=== PATIENT | female | born 1940 | race Caucasian/White ===

== ENCOUNTER 2018-06-14 10:13 | Inpatient (IN) | payer MEDICARE ==
[~2018-06-14] VITALS: Ht 160 cm; Wt 49.7 kg
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
[2018-06-14] MEDS ORDERED: HYDROcodone/APAP 5/325 TABLET PO ONE (10:30)
--- NOTE | 2018-06-14 10:59 | NUR ---
pt laying on gurney awake & calm, responds verbally to staff, NAD at rest, comfort measures provided, call light within reach
[2018-06-14] MEDS ORDERED: HYDROcodone/APAP 5/325 TABLET ONE (11:01)
--- NOTE | 2018-06-14 12:04 | NUR ---
pt continues laying on gurney with eyes closed, responds verbally to staff, NAD at rest, comfort measures provided, call light within reach
--- NOTE | 2018-06-14 13:38 | NUR ---
DR. PEARSON AT BEDSIDE.
--- NOTE | 2018-06-14 13:41 | NUR ---
Pt to be admitted to med-surg, room 456. Report called to Rachel.
[2018-06-14] MEDS ORDERED: MULT-658 PO (13:47)
[2018-06-14] MEDS ORDERED: FERR324T5 PO (13:47)
[2018-06-14] MEDS ORDERED: OMEP20TA62 PO (13:47)
[2018-06-14] MEDS ORDERED: NAPR-685 PO (13:47)
[2018-06-14] MEDS ORDERED: LORA0.5T PO (13:47)
[2018-06-14] MEDS ORDERED: QUET25TA7 PO (13:47)
[2018-06-14] MEDS ORDERED: FLUO20CA19 PO (13:47)
[2018-06-14] MEDS ORDERED: TRAM50TA2 PO (13:47)
[2018-06-14] MEDS ORDERED: SIMV80TA18 PO (13:47)
--- NOTE | 2018-06-14 14:01 | NUR ---
pt laying on gurney awake & calm, responds verbally to staff, NAD at rest, comfort measures provided, call light within reach
[2018-06-14 14:06] LABS: BASOPHILS # (AUTO) 0.07 x10^3/uL (0-0.1); BASOPHILS % (AUTO) 1 % (0-1); EOSINOPHILS # (AUTO) 0.08 x10^3/uL (0-0.4); EOSINOPHILS % (AUTO) 1 % (1-7); LYMPHOCYTES # (AUTO) 1.62 x10^3/uL (1-3.4); LYMPHOCYTES % (AUTO) 20 % (22-44); MD NO; MEAN CORPUSCULAR HGB CONC 33.4 g/dL (32.4-35.8); MEAN CORPUSCULAR VOLUME 101.8 fL (80-100); MEAN PLATELET VOLUME 9.2 fL (7.4-10.4); MONOCYTES # (AUTO) 0.79 x10^3/uL (0.2-0.8); MONOCYTES % (AUTO) 10 % (2-9); NEUTROPHILS # (AUTO) 5.68 x10^3/uL (1.8-6.8); NEUTROPHILS % (AUTO) 69 % (42-75); PLATELET COUNT 226 x10^3/uL (130-400); RED BLOOD COUNT 3.88 x10^6/uL (3.82-5.3); RED CELL DISTRIBUTION WIDTH 13.8 % (9.6-15.2)
[2018-06-14] MEDS ORDERED: LORazepam 2 MG/ML, 1ML ONE (14:09)
[2018-06-14 14:12] LABS: ALBUMIN 3.5 g/dL (3.4-5.0); ANION GAP 6 mmol/L (5-15); CHLORIDE 105 mmol/L (98-107); CREATININE 0.61 mg/dL (0.55-1.02); INTERNATIONAL NORMALIZED RATIO 1.02 (0.93-1.1); PROTHROMBIN TIME 10.7 Seconds (9.6-11.5)
--- NOTE | 2018-06-14 14:13 | NUR ---
pt to MRI then floor
[2018-06-14] MEDS ORDERED: LORazepam 2 MG/ML, 1ML IVPush ONE (14:30)
[2018-06-14 15:16] VITALS: BP 129/83
[2018-06-14] MEDS ORDERED: POLYETHYLENE GLYCOL 17 GM PACKET PO PRN (15:30)
[2018-06-14] MEDS ORDERED: morphine SULFATE 10 MG/ML, 1ML IVPush PRN (15:30)
[2018-06-14] MEDS ORDERED: BISACODYL 10 MG SUPP PR PRN (15:30)
[2018-06-14] MEDS ORDERED: ONDANSETRON 2MG/ML, 2ML IVPush PRN (15:30)
[2018-06-14] MEDS ORDERED: ACETAMINOPHEN 325 MG TABLET PO PRN (15:30)
[2018-06-14] MEDS ORDERED: hydrALAzine 20 MG/ML, 1ML IVPush PRN (15:30)
[2018-06-14] MEDS ORDERED: ONDANSETRON ODT 4 MG PO PRN (15:30)
[2018-06-14] MEDS ORDERED: PROMETHAZINE 25 MG/ML, 1ML IM PRN (15:30)
[2018-06-14] MEDS ORDERED: ENOXAPARIN 40 MG/0.4 ML SQ SCH (15:30)
[2018-06-14] MEDS ORDERED: METHOCARBAMOL 500 MG TABLET PO PRN (15:30)
[2018-06-14 16:31] LABS: FREE T4 (FREE THYROXINE) 1.39 ng/dL (0.76-1.46)
[2018-06-14 16:34] LABS: FOLATE LEVEL > 20.0 ng/mL (3.1-17.5)
[2018-06-14 16:39] LABS: HEMOGLOBIN A1C 5.5 % (4.2-6.3)
[2018-06-14] MEDS: SODIUM CHLORIDE 0.9% 1,000 ML IV SCH (17:05)
[2018-06-14 19:08] VITALS: BP 132/83
[2018-06-14] MEDS: NAPROXEN 500 MG TABLET PO SCH (20:36)
[2018-06-14] MEDS: HYDROcodone/APAP 5/325 TABLET PO PRN (20:36)
[2018-06-14] MEDS: QUETIAPINE 25MG TABLET PO SCH (20:36)
[2018-06-14] MEDS: SIMVASTATIN 40 MG TABLET PO SCH (20:36)
[2018-06-14] MEDS: HEPARIN 5,000 UNITS/ML, 1ML SQ SCH (20:37)
[2018-06-15] MEDS: SODIUM CHLORIDE 0.9% 1,000 ML IV SCH (02:29)
[2018-06-15 04:00] VITALS: BP 150/90
[2018-06-15 04:16] LABS: BASOPHILS # (AUTO) 0.02 x10^3/uL (0-0.1); BASOPHILS % (AUTO) 0 % (0-1); EOSINOPHILS # (AUTO) 0.29 x10^3/uL (0-0.4); EOSINOPHILS % (AUTO) 5 % (1-7); LYMPHOCYTES # (AUTO) 1.91 x10^3/uL (1-3.4); LYMPHOCYTES % (AUTO) 31 % (22-44); MD NO; MEAN CORPUSCULAR HGB CONC 33.3 g/dL (32.4-35.8); MONOCYTES # (AUTO) 0.73 x10^3/uL (0.2-0.8); MONOCYTES % (AUTO) 12 % (2-9); NEUTROPHILS # (AUTO) 3.28 x10^3/uL (1.8-6.8); NEUTROPHILS % (AUTO) 53 % (42-75); PLATELET COUNT 200 x10^3/uL (130-400); RED BLOOD COUNT 3.87 x10^6/uL (3.82-5.3)
[2018-06-15 04:22] LABS: ALANINE AMINOTRANSFERASE 28 U/L (12-78); ALBUMIN 3.1 g/dL (3.4-5.0); ANION GAP 4 mmol/L (5-15); CALCIUM 8.4 mg/dL (8.5-10.1); CHLORIDE 107 mmol/L (98-107)
[2018-06-15 04:25] LABS: ALKALINE PHOSPHATASE 79 U/L (45-117); BILIRUBIN,TOTAL 0.7 mg/dL (0.2-1.0); CHOL/HDL RATIO 3.4; CHOLESTEROL, TOTAL 241 mg/dL (140-239); CREATININE 0.62 mg/dL (0.55-1.02); HDL CHOL % 29 % (28-40); HDL CHOLESTEROL (DIRECT) 70 mg/dL (40-60); LDL CHOLESTEROL,CALCULATED 149 mg/dL (54-169); LDL/HDL RATIO 2.1 (0.5-3.0); TOTAL PROTEIN 6.3 g/dL (6.4-8.2); TRIGLYCERIDES 111 mg/dL (50-200); VLDL CHOLESTEROL 22 mg/dL (0-25)
[2018-06-15] MEDS: HEPARIN 5,000 UNITS/ML, 1ML SQ SCH (05:51)
[2018-06-15 07:38] VITALS: BP 161/93
[2018-06-15] MEDS: SENNA/DOCUSATE TABLET PO SCH (08:13)
[2018-06-15] MEDS: FLUOXETINE HCL 20 MG CAPSULE PO SCH (08:13)
[2018-06-15] MEDS: FERROUS SULFATE 325 MG TABLET PO SCH (08:13)
[2018-06-15] MEDS: NAPROXEN 500 MG TABLET PO SCH ×2 (08:13→21:38)
[2018-06-15] MEDS: MULTIVITAMIN 1 TABLET PO SCH (08:13)
[2018-06-15] MEDS: OMEPRAZOLE 20 MG CAPSULE.DR PO SCH (08:13)
[2018-06-15] MEDS: HYDROcodone/APAP 5/325 TABLET PO PRN ×3 (08:16→21:39)
[2018-06-15] MEDS: LORazepam 0.5MG TABLET PO PRN (12:11)
[2018-06-15] MEDS ORDERED: ENOXAPARIN 30 MG/0.3 ML SQ SCH (13:00)
[2018-06-15 13:17] VITALS: BP 126/76
[2018-06-15] MEDS ORDERED: SODIUM CHLORIDE 0.9% 1,000 ML IV SCH (17:45)
[2018-06-15] MEDS: ENOXAPARIN 40 MG/0.4 ML SQ SCH (17:56)
[2018-06-15 19:08] VITALS: BP 129/74
[2018-06-15] MEDS: QUETIAPINE 25MG TABLET PO SCH (21:38)
[2018-06-15] MEDS: SIMVASTATIN 40 MG TABLET PO SCH (21:43)
[2018-06-15] MEDS ORDERED: ERGOCALCIFEROL 50,000 UNIT CAPSULE PO SCH (22:30)
[2018-06-16 00:48] VITALS: BP 127/78
[2018-06-16] MEDS: HYDROcodone/APAP 5/325 TABLET PO PRN ×4 (04:09→18:38)
[2018-06-16] MEDS: SENNA/DOCUSATE TABLET PO SCH (08:23)
[2018-06-16] MEDS: OMEPRAZOLE 20 MG CAPSULE.DR PO SCH (08:23)
[2018-06-16] MEDS: NAPROXEN 500 MG TABLET PO SCH ×2 (08:23→21:27)
[2018-06-16] MEDS: FERROUS SULFATE 325 MG TABLET PO SCH (08:23)
[2018-06-16] MEDS: MULTIVITAMIN 1 TABLET PO SCH (08:23)
[2018-06-16] MEDS: FLUOXETINE HCL 20 MG CAPSULE PO SCH (08:23)
[2018-06-16 09:59] VITALS: BP 113/75
[2018-06-16 15:55] VITALS: BP 124/82
[2018-06-16] MEDS: LORazepam 0.5MG TABLET PO PRN (16:07)
[2018-06-16] MEDS: ENOXAPARIN 40 MG/0.4 ML SQ SCH (18:38)
[2018-06-16 19:46] VITALS: BP 127/76
[2018-06-16] MEDS: QUETIAPINE 25MG TABLET PO SCH (21:27)
[2018-06-16] MEDS: SIMVASTATIN 40 MG TABLET PO SCH (21:27)
[2018-06-17 01:09] VITALS: BP 127/55
[2018-06-17 06:35] VITALS: BP 137/91
[2018-06-17] MEDS: HYDROcodone/APAP 5/325 TABLET PO PRN ×3 (06:50→19:56)
[2018-06-17] MEDS: SENNA/DOCUSATE TABLET PO SCH (08:29)
[2018-06-17] MEDS: FLUOXETINE HCL 20 MG CAPSULE PO SCH (08:29)
[2018-06-17] MEDS: FERROUS SULFATE 325 MG TABLET PO SCH (08:30)
[2018-06-17] MEDS: NAPROXEN 500 MG TABLET PO SCH ×2 (08:30→19:55)
[2018-06-17] MEDS: OMEPRAZOLE 20 MG CAPSULE.DR PO SCH (08:31)
[2018-06-17] MEDS: MULTIVITAMIN 1 TABLET PO SCH (08:31)
[2018-06-17 13:26] VITALS: BP 106/71
[2018-06-17] MEDS: LORazepam 0.5MG TABLET PO PRN ×2 (13:48→21:26)
[2018-06-17] MEDS: ENOXAPARIN 40 MG/0.4 ML SQ SCH (17:31)
[2018-06-17] MEDS: QUETIAPINE 25MG TABLET PO SCH (19:55)
[2018-06-17] MEDS: SIMVASTATIN 40 MG TABLET PO SCH (19:56)
[2018-06-17 20:59] VITALS: BP 120/77
[2018-06-18 02:11] VITALS: BP 147/82
[2018-06-18] MEDS: HYDROcodone/APAP 5/325 TABLET PO PRN ×3 (02:18→12:30)
[2018-06-18] MEDS: SENNA/DOCUSATE TABLET PO SCH (08:18)
[2018-06-18] MEDS: NAPROXEN 500 MG TABLET PO SCH (08:19)
[2018-06-18] MEDS: MULTIVITAMIN 1 TABLET PO SCH (08:19)
[2018-06-18] MEDS: OMEPRAZOLE 20 MG CAPSULE.DR PO SCH (08:19)
[2018-06-18] MEDS: FLUOXETINE HCL 20 MG CAPSULE PO SCH (08:20)
[2018-06-18] MEDS: FERROUS SULFATE 325 MG TABLET PO SCH (08:21)
[2018-06-18 09:32] VITALS: BP 131/88
[2018-06-18] MEDS ORDERED: METH500T7 PO (09:59)
[2018-06-18] MEDS ORDERED: ENOX40SY4 SQ (09:59)
[2018-06-18] MEDS ORDERED: SENN-177 PO (09:59)
[2018-06-18] MEDS ORDERED: HYDR-3237 PO (09:59)
[2018-06-18] MEDS ORDERED: BISA10SU54 PR (09:59)
[2018-06-18] MEDS ORDERED: ERGO500017 PO (09:59)
[2018-06-18] MEDS: LORazepam 0.5MG TABLET PO PRN (11:10)
== END 2018-06-18 12:30 | DRG 542 ==
LOC: ED 12:42 → EDIP 13:02 → 4NOR 13:48 → ED 13:58 → 4NOR 14:00
PROVIDERS: ADMIT Internal Medicine; ATTEND Internal Medicine
DX: M48.54XA Collapsed vertebra, not elsewhere classified, thoracic region, initial encounter for fracture (principal); R53.2 Functional quadriplegia; M48.56XA Collapsed vertebra, not elsewhere classified, lumbar region, initial encounter for fracture; W06.XXXA Fall from bed, initial encounter; R53.81 Other malaise; D75.89 Other specified diseases of blood and blood-forming organs; E55.9 Vitamin D deficiency, unspecified; E78.5 Hyperlipidemia, unspecified; F17.210 Nicotine dependence, cigarettes, uncomplicated; F41.9 Anxiety disorder, unspecified; K21.9 Gastro-esophageal reflux disease without esophagitis; M19.90 Unspecified osteoarthritis, unspecified site; M48.061 Spinal stenosis, lumbar region without neurogenic claudication; M81.0 Age-related osteoporosis without current pathological fracture; R29.6 Repeated falls; Z91.030 Bee allergy status; Y93.89 Activity, other specified; Y92.89 Other specified places as the place of occurrence of the external cause; Y99.8 Other external cause status; Z91.041 Radiographic dye allergy status
CPT/HCPCS: 36415; 72100; 72128; 72131; 72146; 72148; 80048; 80053; 80061; 82040; 82306; 82607; 82746; 83036; 83735; 84439; 84443; 85025; 85610; 85730; 99285; G0378; J1644; J1650; 92523-GN; J2060; J7030